=== PATIENT | male | born 1940 | race Caucasian/White ===

== ENCOUNTER 2016-11-12 09:11 | Emergency (ER) | payer OTHER ==
[2016-11-12 12:10] VITALS: BP 133/80
== END 2016-11-12 13:31 | disposition home or self-care (01) ==
LOC: ED 09:11
DX: M62.838 Other muscle spasm (principal); M62.830 Muscle spasm of back; E11.9 Type 2 diabetes mellitus without complications; Z79.84 Long term (current) use of oral hypoglycemic drugs; F43.10 Post-traumatic stress disorder, unspecified
CPT/HCPCS: 20552; J1885; J2001